=== PATIENT | female | born 1960 | race Hispanic/Latino ===

== ENCOUNTER 2019-03-29 20:58 | Observation (INO) | payer MEDICARE ==
[~2019-03-29] VITALS: Ht 157.5 cm; Wt 83.0 kg
[~2019-03-29 20:58] MED LIST: CARV3.12 PO; CLOP75TA32 PO; FURO20TA4 PO; TORS20TA4 PO
[2019-03-29] MEDS ORDERED: IPRATROPIUM/ALBUTEROL SULFATE 3 ML SOLUTION IH ONE (21:35)
[2019-03-29 21:52] LABS: ABG BASE EXCESS 2.6 mmol/L (-2.0-3.0); ABG HCO3 26.6 mmol/L (21.0-28.0); ABG OXYGEN SATURATION 91.2 % (95.0-99.0); ABG PCO2 39 mmHg (32-45)
[2019-03-29] MEDS ORDERED: LEVOFLOXACIN 500 MG/D5W 100 ML 100 ML ONE (22:00)
[2019-03-29 22:05] LABS: BASOPHILS % (AUTO) 0.4 % (0.0-5.0); HEMATOCRIT 29.3 % (36-48); MEAN CORPUSCULAR HEMOGLOBIN 27.9 pg (27.0-33.0); MEAN CORPUSCULAR HGB CONC 32.3 g/dL (32.0-36.0); MEAN CORPUSCULAR VOLUME 86.3 fL (79-99); MONOCYTES % (AUTO) 4.4 % (3.0-13.0); NEUTROPHILS % (AUTO) 86.2 % (40.0-77.0); PLATELET COUNT (AUTO) 323 K/uL (130-400); RED BLOOD CELL COUNT(AUTO) 3.39 MIL/uL (4.00-5.50); RED CELL DISTRIBUTION WIDTH 16.3 % (11.0-15.5); WHITE BLOOD COUNT (AUTO) 15.5 K/uL (4.8-10.8)
[2019-03-29 22:17] LABS: INR 1.06 (0.85-1.15); PARTIAL THROMBOPLASTIN TIME 29.5 SEC (26.3-35.5); PROTHROMBIN TIME 11.1 SEC (9.6-11.6)
[2019-03-29 22:20] LABS: POTASSIUM 4.2 mmol/L (3.5-5.1)
[2019-03-29 22:23] LABS: B-TYPE NATRIURETIC PEPTIDE 2310 pg/mL (0-100)
[2019-03-29 22:24] LABS: ALBUMIN 2.8 g/dL (3.5-5.0); BILIRUBIN,TOTAL 0.7 mg/dL (0.2-1.0); TOTAL PROTEIN, SERUM 7.1 g/dL (6.0-8.3)
[2019-03-30] MEDS ORDERED: FUROSEMIDE 10 MG/ML 2ML VIAL ONE (00:49)
[2019-03-30] MEDS ORDERED: FUROSEMIDE 10 MG/ML 4ML VIAL ONE (00:50)
[2019-03-30 01:36] LABS: APPEARANCE,URINE Clear (CLEAR); BILIRUBIN,URINE Negative (NEGATIVE); COLOR,URINE Yellow (YELLOW); GLUCOSE, URINE (UA) TRACE mg/dL (NEGATIVE); KETONES,URINE Negative (NEGATIVE); LEUKOCYTE ESTERASE ,URINE Small (NEGATIVE); NITRATE,URINE Negative (NEGATIVE); OCCULT BLOOD,URINE Negative (NEGATIVE); PROTEIN,URINE POS 1+ mg/dL (NEGATIVE); UROBILINOGEN,URINE 0.2 mg/dL (0.2-1.0)
[2019-03-30 01:51] LABS: BACTERIA,URINE None Seen /HPF (None Seen); RBC,URINE None Seen /HPF (0-1); SQUAMOUS EPITHELIAL CELL,UR Few /HPF (0-2); YEAST,URINE BUDDING Few /HPF (None Seen)
--- NOTE | 2019-03-30 03:30 | NUR ---
REPORT RECEIVED FROM HETAL KOCH
--- NOTE | 2019-03-30 03:45 | NUR ---
PT ARRIVED FROM ER. PT IS SOB. ON NASAL CANNULA AT 4LPM. BLIND. REQUIRES REDIRECTION AND ORIENTATION. ABLE TO MOVE IN BED. ABLE TO USE BED TURNER. ON LASIX IV. PT AA03. GIAN. EDEMA NOTED TO UPPER EXTREMITIES. IV PATENT. Addendum: 03/30/19 at 0415 by CIERRA ESPINAL RN RN REDNESS/RASH WITH WHITE DISCHARGE NOTED TO PERINEAL AREA AND AREA BETWEEN BUTTOCKS. BARRIER CREAM APPLIED.
[2019-03-30 04:25] VITALS: BP 136/81
[2019-03-30 06:33] LABS: TROPONIN I 0.73 ng/mL (0.00-0.06)
[2019-03-30 07:07] VITALS: BP 135/75
--- NOTE | 2019-03-30 08:00 | NUR ---
AM ASSESSMENT PT LAYING IN BED, SPEAKING ON CELL PHONE. BLIND. A/O X 3. SOB ON EXERTION. NO DISTRESS NOTED. DENIES CHEST PAIN OR DISCOMFORT. DENIES PALPITATIONS. TELE: SR 80s. DENIES N/V AND/OR DIARRHEA. BEDREST. INSTRUCTED TO CALL FOR ASSISTANCE. CALL CHAD W/IN REACH.
[2019-03-30] MEDS ORDERED: FUROSEMIDE 10 MG/ML 4ML VIAL IVP SCH (09:00)
[2019-03-30 11:10] VITALS: BP 147/74
[2019-03-30] MEDS ORDERED: IPRATROPIUM/ALBUTEROL SULFATE 3 ML SOLUTION IH PRN (12:30)
[2019-03-30] MEDS ORDERED: LEVOFLOXACIN 500 MG/D5W 100 ML 100 ML IV SCH (12:30)
[2019-03-30 14:56] LABS: TROPONIN I 0.8 ng/mL (0.00-0.06)
--- NOTE | 2019-03-30 15:06 | NUR ---
DC PLAN VISITED WITH PATIENT SEVERAL TIMES. PATIENT SLEEPING DID NOT WAKE UP. PER MEDICAL RECORD PATIENT LIVES ALONE, PROVIDER 6 OURS, [facility]. PER DR. LOU PATIENT DID NOT MAKE IT HOME 6 HRS BEFORE RETURNING. NEEDS TO GO TO SNF. NO H AND P OR PT NOTES FOR REFERRAL CM WILL CONTINUE TO MONITOR. Addendum: 03/30/19 at 1508 by ROGERIO JONES RN CM Amended: Links added.
[2019-03-30 15:20] VITALS: BP 142/74
[2019-03-30] MEDS: CARVEDILOL 3.125 MG TABLET PO SCH (19:56)
[2019-03-30 20:27] VITALS: BP 125/69
[2019-03-31] VITALS: BP 141/81
--- NOTE | 2019-03-31 | NUR ---
PT HAS BEEN STABLE. NO SOB. NO DISTRESS NOTED. ABLE TO USE BEDPAN. PT HAS BEEN CLEARED BY PT TO AMBULATE. PT STATES NO CONCERNS AT THIS TIME. VITALS WNL. CONTINUES ON NASAL CANNULA AT 4LPM.
[2019-03-31 04:03] VITALS: BP 138/75
[2019-03-31 04:03] LABS: HEMATOCRIT 27.3 % (36-48); MEAN CORPUSCULAR HEMOGLOBIN 28.6 pg (27.0-33.0); MEAN CORPUSCULAR HGB CONC 33.2 g/dL (32.0-36.0); PLATELET COUNT (AUTO) 264 K/uL (130-400); RED BLOOD CELL COUNT(AUTO) 3.17 MIL/uL (4.00-5.50); RED CELL DISTRIBUTION WIDTH 17.3 % (11.0-15.5); WHITE BLOOD COUNT (AUTO) 9.3 K/uL (4.8-10.8)
[2019-03-31 04:09] LABS: POTASSIUM 3.9 mmol/L (3.5-5.1)
[2019-03-31 04:44] LABS: BAND NEUTROPHILS % (MANUAL) 2 % (0-2); BASOPHILS % (MANUAL) 2 % (0-2); EOSINOPHILS % (MANUAL) 4 % (1-6); LYMPHOCYTES % (MANUAL) 12 % (22-44); MAN.DIFF COMMENT-IMPRESSION MANUAL DIFFERENTIAL; MONOCYTES % (MANUAL) 3 % (2-9); SEGMENTED NEUTROPHILS % 77 % (40-70)
[2019-03-31 04:45] LABS: PLATELET MORPHOLOGY COMMENT ADEQUATE
--- NOTE | 2019-03-31 08:00 | NUR ---
AM ASSESSMENT PT LAYING IN BED, HOB ELEVATED 30 DEGREES, RESTING. BLIND. A/O X 3. SOB ON EXERTION. NO DISTRESS NOTED. O2 NC @ 4L. O2 DEPENDENT. DENIES CHEST PAIN OR DISCOMFORT. DENIES PALPITATIONS. TELE: SR 80s. DENIES N/V AND/OR DIARRHEA. UP W/ASSISTANCE & WALKER. BR W/BRP. INSTRUCTED TO CALL FOR ASSISTANCE. CALL CHAD W/IN REACH.
[2019-03-31 08:12] VITALS: BP 151/85
[2019-03-31] MEDS: CARVEDILOL 3.125 MG TABLET PO SCH (08:42)
[2019-03-31] MEDS ORDERED: LEVOFLOXACIN 500 MG/D5W 100 ML 100 ML IV SCH (09:00)
[2019-03-31] MEDS ORDERED: CLOPIDOGREL BISULFATE 75 MG TAB PO SCH (09:00)
[2019-03-31] MEDS ORDERED: FUROSEMIDE 20 MG TABLET PO SCH ×3 (09:00→21:00)
[2019-03-31 11:10] VITALS: BP 136/70
--- NOTE | 2019-03-31 15:02 | NUR ---
TRANSFER TELEPHONE REPORT GIVEN TO YE KOCH.
--- NOTE | 2019-03-31 15:15 | NUR ---
TRANSFER PT TRANSFERRED TO RM 331 VIA WC BY Rossy HEARN PCP.
[2019-03-31 16:00] VITALS: BP 120/76
--- NOTE | 2019-03-31 16:09 | NUR ---
DC PLAN PATIENT ACCEPTED AT 1530. PATIENT MOVED TO 3RD FLOOR LET 3RD FLOOR NURSE KNOW PATIENT ACCEPTED AT [address]. CALL[address] LOU OFFICE FOR ORDER SAID HE HAD ALREADY LEFT. PAGED HIM TO MY PHONE WELL. NO CALL BACK YET. NEED ORDER AND MED REC. PASRR DONE. PATIENT LOOKS LIKE CAN GO VIA FACILITY VAN BUT IN CASE EMS FORMS FILLED IN CHART. Addendum: 03/31/19 at 1611 by ROGERIO JONES RN CM Amended: Links added.
[2019-03-31] MEDS ORDERED: SIMV20TA6 PO (17:21)
[2019-03-31] MEDS ORDERED: FURO20TA6 PO (17:21)
[2019-03-31] MEDS ORDERED: LEVO500T89 PO (17:21)
--- NOTE | 2019-03-31 18:35 | NUR ---
Discharge report Report given to Giuliana GARCIA of [facility], states company van will come and pick of resident. No questions or concerns verbalized regarding her discharge instructions for the continuation of care. Patient made aware of discharge to facility. Discharge instructions given to patient no questions or concerns voiced. Verbalized understanding of new medications, and new antibiotics.
--- NOTE | 2019-03-31 19:21 | NUR ---
Discharge. Patient left via company van. Patient was stable at time of discharge. no questions or concerns about discharge verbalized.
[2019-03-31] MEDS ORDERED: SIMVASTATIN 20 MG TABLET PO SCH (21:00)
== END 2019-03-31 19:15 ==
LOC: EDH 20:58 → INTOOBSV 03-30 00:24 → EDHIP 03-30 00:24 → 2AH 03-30 03:08 → 3AH 03-31 15:24
PROVIDERS: ADMIT Internal Medicine Nephrology; ATTEND Internal Medicine Nephrology
DX: J18.9 Pneumonia, unspecified organism (principal); I25.10 Atherosclerotic heart disease of native coronary artery without angina pectoris; J44.9 Chronic obstructive pulmonary disease, unspecified; I11.0 Hypertensive heart disease with heart failure; I50.9 Heart failure, unspecified; E78.00 Pure hypercholesterolemia, unspecified; H54.7 Unspecified visual loss; J44.0 Chronic obstructive pulmonary disease with (acute) lower respiratory infection; Z87.01 Personal history of pneumonia (recurrent); Z82.49 Family history of ischemic heart disease and other diseases of the circulatory system; Z79.899 Other long term (current) drug therapy
CPT/HCPCS: 36415 ×3; 36600; 71045; 80048; 80053; 81001; 82550 ×3; 82803; 82948; 83605; 83690; 83874 ×2; 83880; 84484 ×3; 85025 ×2; 85610; 85730; 87040 ×2; 93005; 94640 ×2; 94664; 96365; 96366; 96375; 97039; 97116; 97161; 99291; G0378 ×43; G8978; G8979; G8980; G8981; G8982; G8983; J1940 ×3; J1956 ×3

== ENCOUNTER 2019-05-25 10:00 | Inpatient (IN) | payer MEDICARE ==
[~2019-05-25] VITALS: Ht 153.7 cm; Wt 87.2 kg
[~2019-05-25 10:00] MED LIST changes: -FURO20TA4 PO
[2019-05-25 11:45] VITALS: BP 193/97
[2019-05-25 12:08] LABS: BASOPHILS % (AUTO) 0.8 % (0.0-5.0); EOSINOPHILS % (AUTO) 3.1 % (0.0-8.0); HEMATOCRIT 35.6 % (36-48); MEAN CORPUSCULAR HEMOGLOBIN 27.3 pg (27.0-33.0); MEAN CORPUSCULAR HGB CONC 32.7 g/dL (32.0-36.0); MEAN CORPUSCULAR VOLUME 83.5 fL (79-99); MONOCYTES % (AUTO) 5.7 % (3.0-13.0); NEUTROPHILS % (AUTO) 58.4 % (40.0-77.0); PLATELET COUNT (AUTO) 335 K/uL (130-400); RED BLOOD CELL COUNT(AUTO) 4.26 MIL/uL (4.00-5.50); RED CELL DISTRIBUTION WIDTH 16.5 % (11.0-15.5); WHITE BLOOD COUNT (AUTO) 12.6 K/uL (4.8-10.8)
[2019-05-25 12:18] LABS: INR 0.95 (0.85-1.15); PARTIAL THROMBOPLASTIN TIME 28.7 SEC (26.3-35.5)
[2019-05-25 12:20] LABS: HEMOGLOBIN A1C 7.4 % (4.0-6.0)
[2019-05-25 12:21] LABS: ALBUMIN 3.2 g/dL (3.5-5.0); BILIRUBIN,TOTAL 0.2 mg/dL (0.2-1.0); CREATININE 0.8 mg/dL (0.5-1.5); TOTAL PROTEIN, SERUM 8.5 g/dL (6.0-8.3)
[2019-05-25 12:57] VITALS: BP 146/78
[2019-05-25 13:53] LABS: CHOLESTEROL 266 mg/dL (<200); HDL CHOLESTEROL 43 mg/dL (35-85); LDL DIRECT 201 mg/dL (0-99); TRIGLYCERIDES 132 mg/dL (30-200)
--- NOTE | 2019-05-25 15:32 | NUR ---
LABS ABNORMAL LABS/CHEST XRAY REPORTED TO DR. SOTELO, MESSAGE LEFT WITH PAVEL CRESPO RN , NO FURTHER ORDERS GIVEN
[2019-05-26] VITALS (32 sets, daily range): BP systolic 55–212; BP diastolic 46–208
[2019-05-26] MEDS ORDERED: SODIUM CHLORIDE 0.9% 1000ML 1,000 ML IV ONE (09:49)
--- NOTE | 2019-05-26 10:15 | NUR ---
BLIND pt is blind Addendum: 05/26/19 at 1145 by DINA SR RN RN Amended: Links added.
[2019-05-26] MEDS: CEFUROXIME SODIUM 1.5 GM VIAL IVP SCH ×2 (10:20→11:30)
[2019-05-26] MEDS ORDERED: EPINEPHRINE 1 MG/ML AMPULE ONE (10:33)
[2019-05-26] MEDS ORDERED: MIDAZOLAM HCL 1 MG/ML 2ML VIAL ONE ×2 (10:33→11:15)
[2019-05-26] MEDS ORDERED: FENTANYL CITRATE PF 50 MCG/1 ML 20ML VIAL IJ ONE (10:33)
[2019-05-26] MEDS ORDERED: PROPOFOL 10 MG/ML 20ML VIAL IV ONE (10:33)
[2019-05-26] MEDS ORDERED: AMINOCAPROIC ACID 250 MG/ML 20 ML VIAL IV ONE (10:33)
[2019-05-26] MEDS ORDERED: ROCURONIUM 10MG/1ML SYR 10 MG/ML ML ONE (10:33)
[2019-05-26] MEDS ORDERED: HEPARIN SODIUM 1000UNIT/ML 10ML VIAL ONE (10:33)
[2019-05-26] MEDS ORDERED: NOREPINEPHRINE BITARTRATE 1 MG/1 ML ML IV ONE (10:33)
[2019-05-26] MEDS ORDERED: LIDOCAINE PF 2% 5ML ABBOJECT ONE ×2 (10:33→10:34)
[2019-05-26] MEDS ORDERED: PROTAMINE SULFATE 10 MG/ML 25ML VIAL IV ONE (10:33)
[2019-05-26] MEDS ORDERED: ESMOLOL HCL 10 MG/ML 10 ML VIAL ONE (10:33)
[2019-05-26] MEDS ORDERED: ETOMIDATE 2 MG/ML 10 ML VIAL ONE (10:34)
[2019-05-26] MEDS ORDERED: VASOPRESSIN 20 UNITS/ML 1ML VIAL ONE (10:35)
[2019-05-26] MEDS ORDERED: AMIODARONE HCL 50 MG/ML 3 ML VIAL ONE (10:35)
[2019-05-26] MEDS ORDERED: BACITRACIN 50,000 UNIT VIAL ONE (11:00)
[2019-05-26] MEDS ORDERED: PAPAVERINE HCL 30 MG/ML 2ML VIAL ONE (11:00)
[2019-05-26] MEDS ORDERED: NITROGLYCERIN 50 MG/D5% WATER 1 BOT ONE (11:07)
[2019-05-26] MEDS ORDERED: GLYCOPYRROLATE 1 MG/5 ML SYRINGE ONE (11:12)
[2019-05-26] MEDS ORDERED: INSU10VI3 SQ (11:47)
[2019-05-26 12:28] LABS: ABG BASE EXCESS -0.9 mmol/L (-2.0-3.0); ABG HCO3 23.7 mmol/L (21.0-28.0); ABG OXYGEN SATURATION 99.2 % (95.0-99.0); ABG PCO2 39 mmHg (32-45)
[2019-05-26] MEDS ORDERED: SODIUM CHLORIDE 0.9% 500ML 500 ML IV SCH (14:19)
[2019-05-26] MEDS ORDERED: MAGNESIUM 2GM PREMIX 50ML 50 ML IV PRN (14:30)
[2019-05-26] MEDS ORDERED: NOREPINEPHRINE 4MG/NS 250ML 250 ML IV PRN (14:30)
[2019-05-26] MEDS ORDERED: SODIUM CHLORIDE 0.9% 10 ML VIAL IVP PRN (14:30)
[2019-05-26] MEDS ORDERED: POTASSIUM PHOS 15 mMOL+NS250ML 250 ML IV PRN (14:30)
[2019-05-26] MEDS ORDERED: EPINEPHRINE 8 MG in DEXTROSE 5%-WATER 250 ML IV PRN (14:30)
[2019-05-26] MEDS ORDERED: SODIUM CHLORIDE 0.9% 1000ML 1,000 ML IV SCH (14:30)
[2019-05-26] MEDS ORDERED: ACETAMINOPHEN 325 MG TAB PO PRN ×2 (14:30)
[2019-05-26] MEDS ORDERED: CALCIUM GLUCONATE 1 GM in SODIUM CHLORIDE 0.9% 50 ML IV PRN (14:30)
[2019-05-26] MEDS ORDERED: PROPOFOL 1000 MG/100 ML 100 ML IV PRN (14:30)
[2019-05-26] MEDS ORDERED: GLUCAGON 1MG KIT 1 MG ML IM PRN (14:30)
[2019-05-26] MEDS ORDERED: DEXTROSE 50%-WATER 50 ML DISP.SYRIN IV PRN (14:30)
[2019-05-26] MEDS ORDERED: ONDANSETRON HCL 4 MG/2 ML VIAL IV PRN (14:30)
[2019-05-26] MEDS ORDERED: INSULIN REGULAR, HUMAN 3ML 100 UNIT in SODIUM CHLORIDE 0.9% 99 ML IV SCH ×2 (14:30)
[2019-05-26] MEDS ORDERED: ACETAMINOPHEN 650 MG SUPPOSITORY RC PRN (14:30)
[2019-05-26] MEDS ORDERED: MORPHINE SULFATE 2 MG/ML 1ML SYG IV PRN (14:30)
[2019-05-26] MEDS ORDERED: AMINOCAPROIC ACID 15,000 MG in SODIUM CHLORIDE 0.9% 250 ML IV SCH (14:30)
[2019-05-26] MEDS ORDERED: NITROGLYCERIN 50 MG/D5% WATER 250 BOT IV SCH (14:30)
[2019-05-26] MEDS ORDERED: SODIUM CHLORIDE 0.9% 250 ML IV PRN (14:30)
[2019-05-26] MEDS ORDERED: ALBUMIN (HUMAN) 5% 250 ML IV PRN (14:30)
[2019-05-26] MEDS ORDERED: MORPHINE SULFATE 4 MG/1ML SYG IV PRN (14:30)
[2019-05-26] MEDS ORDERED: POTASSIUM CHLORIDE 20MEQ/100ML 100 ML IV PRN (14:30)
[2019-05-26] MEDS ORDERED: SODIUM BICARB 50MEQ 50ML VIAL ONE (14:43)
[2019-05-26 14:56] LABS: ABG BASE EXCESS 0.8 mmol/L (-2.0-3.0); ABG HCO3 23.8 mmol/L (21.0-28.0); ABG PCO2 32 mmHg (32-45)
--- NOTE | 2019-05-26 15:23 | NUR ---
PT WAS RECEIVED FROM [facility] AND ACCOMPANIED BY OR STAFF AND DR. PARMAR. PT WAS CONNECTED TO VENT PRESCRIBED AND WILL MONITOR V/S AND ASSESSMENT NEEDED.
[2019-05-26 15:44] LABS: ABG BASE EXCESS -4.9 mmol/L (-2.0-3.0); ABG HCO3 19.2 mmol/L (21.0-28.0); ABG OXYGEN SATURATION 98.9 % (95.0-99.0); ABG PCO2 32 mmHg (32-45)
[2019-05-26 15:58] LABS: HEMATOCRIT 26.6 % (36-48); MEAN CORPUSCULAR HEMOGLOBIN 27.4 pg (27.0-33.0); MEAN CORPUSCULAR HGB CONC 32.2 g/dL (32.0-36.0); MEAN CORPUSCULAR VOLUME 85.1 fL (79-99); PLATELET COUNT (AUTO) 269 K/uL (130-400); RED BLOOD CELL COUNT(AUTO) 3.13 MIL/uL (4.00-5.50); RED CELL DISTRIBUTION WIDTH 16.7 % (11.0-15.5)
[2019-05-26 16:03] LABS: WHITE BLOOD COUNT (AUTO) 31.2 K/uL (4.8-10.8)
[2019-05-26 16:10] LABS: INR 1.09 (0.85-1.15); PARTIAL THROMBOPLASTIN TIME 25.6 SEC (26.3-35.5); PROTHROMBIN TIME 11.4 SEC (9.6-11.6)
[2019-05-26 16:15] LABS: CREATININE 0.8 mg/dL (0.5-1.5); MAGNESIUM 1.5 mg/dL (1.80-2.40); PHOSPHORUS 4.1 mg/dL (2.5-4.9); POTASSIUM 3.6 mmol/L (3.5-5.1)
--- NOTE | 2019-05-26 16:15 | NUR ---
PT'S SBP HAS BEEN VERY LABILE AND HAVING TO TURN EPI AND LEVOPHED DRIPS OFF AND BACK ON. HAVE GONE TO TURNING DRIPS OFF TO RESTARTING AT REDUCED DOSE. WILL ATTEMPT TO MAINTAIN SBP BY WORKING WITH MEDS NEEDED.
[2019-05-26] MEDS: SODIUM BICARB 50MEQ 50ML VIAL IV PRN ×2 (16:27→16:28)
[2019-05-26 16:35] LABS: BAND NEUTROPHILS % (MANUAL) 7 % (0-2); EOSINOPHILS % (MANUAL) 1 % (1-6); LYMPHOCYTES % (MANUAL) 12 % (22-44); MAN.DIFF COMMENT-IMPRESSION MANUAL DIFFERENTIAL; MONOCYTES % (MANUAL) 4 % (2-9); REACTIVE LYMPHOCYTES 1 % (0-0); SEGMENTED NEUTROPHILS % 75 % (40-70)
[2019-05-26 16:40] LABS: PLATELET MORPHOLOGY COMMENT LARGE PLTS PRESENT
--- NOTE | 2019-05-26 17:15 | NUR ---
FAMILY MEMBERS HERE TO VISIT WITH PATIENT AND SHE IS NODDING YES OR NO APPROPRIATELY TO THEIR QUESTIONS OR CONCERNS. FAMILY WAS ADVISED OF VISITING HOURS FOR THE AM.
[2019-05-26 18:15] LABS: ABG BASE EXCESS 0.4 mmol/L (-2.0-3.0); ABG HCO3 22.6 mmol/L (21.0-28.0); ABG OXYGEN SATURATION 98.6 % (95.0-99.0); ABG PCO2 28 mmHg (32-45)
--- NOTE | 2019-05-26 18:20 | NUR ---
BRIGHT RED BLOOD FROM N/G TUBE NOTED AND CHECK HCT WITH THE ABG + AND NO DROP NOTED, WILL CONTINUE TO MONITOR.
[2019-05-26] MEDS: CEFAZOLIN SODIUM 1 GM VIAL IV SCH (19:07)
[2019-05-26 20:05] LABS: ABG BASE EXCESS 0.2 mmol/L (-2.0-3.0); ABG HCO3 22.5 mmol/L (21.0-28.0); ABG OXYGEN SATURATION 99.4 % (95.0-99.0); ABG PCO2 31 mmHg (32-45)
[2019-05-26 21:21] LABS: ABG BASE EXCESS 0.6 mmol/L (-2.0-3.0); ABG HCO3 23.8 mmol/L (21.0-28.0); ABG OXYGEN SATURATION 99.3 % (95.0-99.0); ABG PCO2 34 mmHg (32-45)
[2019-05-26] MEDS: FAMOTIDINE/PF 20 MG/2 ML VIAL IV SCH (22:13)
[2019-05-26] MEDS: ATORVASTATIN CALCIUM 20 MG TABLET PO SCH (22:13)
[2019-05-26 23:53] LABS: ABG BASE EXCESS 0.1 mmol/L (-2.0-3.0); ABG HCO3 25.1 mmol/L (21.0-28.0); ABG OXYGEN SATURATION 98.4 % (95.0-99.0); ABG PCO2 42 mmHg (32-45)
[2019-05-27] VITALS (34 sets, daily range): BP systolic 75–152; BP diastolic 40–69
--- NOTE | 2019-05-27 00:36 | NUR ---
extubation Patient ABG within normal limits for most of the shift, but she was unable to follow directions during the weaning tests. She finally was able to pass the NIP test and was extubated at 0030 to 10 liters- 40% Fio2 and tolerated well. The bleeding from the OG tube stopped at 2100. Patient continues to be on 0.5 mcg/min of Levofed.
[2019-05-27 02:31] LABS: ABG BASE EXCESS -1.7 mmol/L (-2.0-3.0); ABG HCO3 22.7 mmol/L (21.0-28.0); ABG PCO2 38 mmHg (32-45)
[2019-05-27] MEDS: CEFAZOLIN SODIUM 1 GM VIAL IV SCH ×2 (03:18→11:04)
[2019-05-27] MEDS: TRAMADOL HCL 50 MG TABLET PO PRN ×3 (03:18→14:47)
[2019-05-27 04:40] LABS: HEMATOCRIT 27.9 % (36-48); MEAN CORPUSCULAR HGB CONC 32.6 g/dL (32.0-36.0); PLATELET COUNT (AUTO) 242 K/uL (130-400); RED BLOOD CELL COUNT(AUTO) 3.37 MIL/uL (4.00-5.50); RED CELL DISTRIBUTION WIDTH 16.3 % (11.0-15.5)
[2019-05-27 04:57] LABS: POTASSIUM 4.5 mmol/L (3.5-5.1)
[2019-05-27 05:02] LABS: INR 0.97 (0.85-1.15); PARTIAL THROMBOPLASTIN TIME 25.6 SEC (26.3-35.5); PROTHROMBIN TIME 10.2 SEC (9.6-11.6)
[2019-05-27 05:13] LABS: MAGNESIUM 2.2 mg/dL (1.80-2.40); PHOSPHORUS 4.7 mg/dL (2.5-4.9)
[2019-05-27] MEDS: ASPIRIN 325MG EC TAB 325 MG TABLET.DR PO SCH (08:16)
[2019-05-27] MEDS: FAMOTIDINE/PF 20 MG/2 ML VIAL IV SCH ×2 (08:16→21:51)
[2019-05-27] MEDS: FUROSEMIDE 10 MG/ML 2ML VIAL IV SCH ×2 (08:16→21:51)
--- NOTE | 2019-05-27 09:00 | NUR ---
PT HAS BEEN ASKING FOR FAMILY AND SISTER VAUGHN WAS CALLED BY NURSING STAFF DUE TO PATIENT'S ASSISTANCE. SISTER SAID THAT SHE WOULD BE LEAVING HER HOME SOON AND THAT IT TAKES HER AN HOUR TO GET TO HOSPITAL AFTER SHE LEFT HER HOME. PATIENT WAS ADVISED.
--- NOTE | 2019-05-27 09:50 | NUR ---
PT WAS ABLE TO USE NURSING STAFF PHONE TO CALL SISTER VAUGHN AND PT GOT UPSET WITH SISTER AND ASKED TOLD HER "DON'T COME" AND PUSHED PHONE AWAY FROM HER.
--- NOTE | 2019-05-27 11:20 | NUR ---
PT'S SISTER HERE AND ADVISING PATIENT TO BE MORE COOPERATIVE AND PT IS ASKING SISTER FOR WATER AND BEING COOPERATIVE.
--- NOTE | 2019-05-27 13:40 | NUR ---
SISTER STAYED IN ORDER FOR PHYSICAL THERAPIST JERRY COULD EVALUATE PATIENT AND PT DID ADVISED PER THERAPIST.
--- NOTE | 2019-05-27 15:10 | NUR ---
DC PLAN PATIENT IN CVR RESTING THIS MORNING. THIS AFTERNOON PT WORKING WITH PATIENT. CARL WILL CONTINUE TO FOLLOW. Addendum: 05/27/19 at 1510 by ROGERIO JONES RN CM Amended: Links added.
--- NOTE | 2019-05-27 16:15 | NUR ---
PT WAS TRANSFERRED TO ROOM 218 SISTER WAS ADVISED.
--- NOTE | 2019-05-27 20:00 | NUR ---
ASSESSMENT: PT AAOX3, COOPERATIVE, FOLLOWING COMMANDS AND RESPONDS APPROPRIATELY. ASSESSMENT COMPLETED, SEE FLOW SHEET. WHITE BOARD UP-DATED. BEDSIDE MONITOR PARAMETERS REVIEWED AND SET. CALLBELL REVIEWED AND WITHIN REACH.
[2019-05-27] MEDS: ATORVASTATIN CALCIUM 20 MG TABLET PO SCH (21:51)
[2019-05-28] VITALS (23 sets, daily range): BP systolic 114–172; BP diastolic 50–106
[2019-05-28] MEDS: TRAMADOL HCL 50 MG TABLET PO PRN ×2 (00:21→09:09)
[2019-05-28 04:22] LABS: HEMATOCRIT 24.3 % (36-48); MEAN CORPUSCULAR HEMOGLOBIN 27.1 pg (27.0-33.0); MEAN CORPUSCULAR HGB CONC 31.9 g/dL (32.0-36.0); MEAN CORPUSCULAR VOLUME 85.1 fL (79-99); PLATELET COUNT (AUTO) 205 K/uL (130-400); RED BLOOD CELL COUNT(AUTO) 2.85 MIL/uL (4.00-5.50); RED CELL DISTRIBUTION WIDTH 16.7 % (11.0-15.5); WHITE BLOOD COUNT (AUTO) 14.1 K/uL (4.8-10.8)
[2019-05-28 04:46] LABS: CREATININE 1.3 mg/dL (0.5-1.5)
--- NOTE | 2019-05-28 06:56 | NUR ---
BEDSIDE REPORT BEDSIDE REPORT GIVEN TO NINOSKA KOCH. CARE ENDORSED.
[2019-05-28] MEDS: FUROSEMIDE 20 MG TABLET PO SCH ×2 (09:08→16:35)
[2019-05-28] MEDS: ASPIRIN 325MG EC TAB 325 MG TABLET.DR PO SCH (09:09)
[2019-05-28] MEDS: FAMOTIDINE/PF 20 MG/2 ML VIAL IV SCH ×2 (09:09→20:56)
[2019-05-28] MEDS: CARVEDILOL 3.125 MG TABLET PO SCH ×2 (09:09→20:55)
[2019-05-28] MEDS ORDERED: GLUCAGON 1MG KIT 1 MG ML IM PRN (13:30)
[2019-05-28] MEDS ORDERED: DEXTROSE 50%-WATER 50 ML DISP.SYRIN IV PRN (13:30)
[2019-05-28] MEDS: INSULIN HUMULIN R 100 UNIT/ML 3ML SQ SCH ×2 (16:30→21:03)
--- NOTE | 2019-05-28 17:25 | NUR ---
DC PLAN VISITED WITH PATIENT. PATIENT LIVES ALONE. SEMI INDEPENDENT ABLE TO PERFORM MOST ADL'S. PATIENT HAS A PROVIDER FOR 29 HRS. NO DME. SAYS HAS BEEN TO [facility] BEFORE AND WOULD LIKE TO GO THERE FOR THERAPY GAVE VERBAL PETR SINCE PATIENT IS BLIND. LET NURSE KNOW THAT NEED ORDER FOR SNF. Addendum: 05/28/19 at 1727 by ROGERIO JONES RN CM Amended: Links added.
[2019-05-28] MEDS: ATORVASTATIN CALCIUM 20 MG TABLET PO SCH (20:54)
[2019-05-28] MEDS: DiphenhydrAMINE HCL 50 MG/ML VIAL IV PRN (20:56)
[2019-05-29] VITALS (13 sets, daily range): BP systolic 96–180; BP diastolic 46–139
[2019-05-29 03:58] LABS: BASOPHILS % (AUTO) 0.6 % (0.0-5.0); EOSINOPHILS % (AUTO) 1.2 % (0.0-8.0); HEMATOCRIT 22.7 % (36-48); LYMPHOCYTES % (AUTO) 16.6 % (21.0-51.0); MEAN CORPUSCULAR HEMOGLOBIN 27.8 pg (27.0-33.0); MEAN CORPUSCULAR HGB CONC 32.8 g/dL (32.0-36.0); MEAN CORPUSCULAR VOLUME 84.7 fL (79-99); MONOCYTES % (AUTO) 9.3 % (3.0-13.0); NEUTROPHILS % (AUTO) 72.3 % (40.0-77.0); PLATELET COUNT (AUTO) 221 K/uL (130-400); RED BLOOD CELL COUNT(AUTO) 2.68 MIL/uL (4.00-5.50); RED CELL DISTRIBUTION WIDTH 16.4 % (11.0-15.5); WHITE BLOOD COUNT (AUTO) 13.2 K/uL (4.8-10.8)
[2019-05-29 04:14] LABS: CREATININE 1.2 mg/dL (0.5-1.5); MAGNESIUM 2.1 mg/dL (1.80-2.40); PHOSPHORUS 3.4 mg/dL (2.5-4.9); POTASSIUM 4.1 mmol/L (3.5-5.1)
[2019-05-29] MEDS: INSULIN HUMULIN R 100 UNIT/ML 3ML SQ SCH ×4 (05:55→21:24)
[2019-05-29] MEDS: TRAMADOL HCL 50 MG TABLET PO PRN (06:31)
[2019-05-29] MEDS: CARVEDILOL 3.125 MG TABLET PO SCH ×2 (07:24→20:27)
[2019-05-29] MEDS: FAMOTIDINE/PF 20 MG/2 ML VIAL IV SCH ×2 (07:24→20:26)
[2019-05-29] MEDS: ASPIRIN 325MG EC TAB 325 MG TABLET.DR PO SCH (07:24)
[2019-05-29] MEDS: FUROSEMIDE 20 MG TABLET PO SCH ×2 (07:25→16:35)
[2019-05-29] MEDS: ENOXAPARIN SODIUM 30 MG/0.3 ML SQ SCH (07:25)
--- NOTE | 2019-05-29 10:15 | NUR ---
SH[facility] Dr. Rubio in to see pt, update given. New orders received and will carry out.
[2019-05-29] MEDS ORDERED: FUROSEMIDE 10 MG/ML 2ML VIAL IV SCH (10:51)
[2019-05-29] MEDS: CLOPIDOGREL BISULFATE 75 MG TAB PO SCH (10:57)
--- NOTE | 2019-05-29 11:35 | NUR ---
CALL Call received from Dr. Henry, update given, new orders received and will carry out.
--- NOTE | 2019-05-29 13:00 | NUR ---
DC LINES Arterial line to left radial discontinued, dressing applied. Chest tubes x2 to mediastinal discontinued as well. Cordis to right internal jugular discontinued, manual pressure held x 15 minutes, no oozing noted from the site, dressing applied. Gaspar catheter removed, due to void at 1900. Pt tolerated well. Call sinclair within reach.
--- NOTE | 2019-05-29 15:40 | NUR ---
TRANSFER Pt transferred to room 203. In no distress. All belongings given to pt and sister at bedside. Telepack applied prior to transfer. Report given to ZEE Salas.
--- NOTE | 2019-05-29 15:45 | NUR ---
ARRIVAL TO ROOM 203 PT IS AAOX3 DENIES CP DENIES SOB DENIES NV NO COMPLAINTS. NO VISIBLE SIGNS OF DISTRESS NOTED. SITTING UP IN RECLINER FAMILY IS AT BEDSIDE. ENCOURAGED USE OF IS 10XS Q1HR WHILE AWAKE ENCOURAGED COUGH AND DEEP BREATHING WITH HEART PILLOW SPLINTING, CALL LIGHT WITHIN REACH.
[2019-05-29] MEDS: DiphenhydrAMINE HCL 50 MG/ML VIAL IV PRN (20:26)
[2019-05-29] MEDS: ATORVASTATIN CALCIUM 20 MG TABLET PO SCH (20:27)
[2019-05-30 00:04] VITALS: BP 121/71
[2019-05-30] MEDS: TRAMADOL HCL 50 MG TABLET PO PRN ×2 (04:51→12:54)
[2019-05-30 04:56] LABS: HEMATOCRIT 23.4 % (36-48); MEAN CORPUSCULAR HEMOGLOBIN 27.3 pg (27.0-33.0); MEAN CORPUSCULAR HGB CONC 32.1 g/dL (32.0-36.0); NUCLEATED RED BLOOD CELLS 0.1 % (0.0-0.19); PLATELET COUNT (AUTO) 233 K/uL (130-400); RED BLOOD CELL COUNT(AUTO) 2.75 MIL/uL (4.00-5.50); RED CELL DISTRIBUTION WIDTH 16.5 % (11.0-15.5)
[2019-05-30 05:08] LABS: CREATININE 1.2 mg/dL (0.5-1.5); POTASSIUM 4.1 mmol/L (3.5-5.1)
[2019-05-30 05:10] VITALS: BP 132/72
[2019-05-30] MEDS: INSULIN HUMULIN R 100 UNIT/ML 3ML SQ SCH ×4 (07:04→21:22)
[2019-05-30] MEDS: FUROSEMIDE 20 MG TABLET PO SCH (07:29)
[2019-05-30] MEDS: CARVEDILOL 3.125 MG TABLET PO SCH ×2 (07:29→21:06)
[2019-05-30] MEDS: CLOPIDOGREL BISULFATE 75 MG TAB PO SCH (07:29)
[2019-05-30] MEDS: FAMOTIDINE/PF 20 MG/2 ML VIAL IV SCH ×2 (07:30→21:08)
[2019-05-30] MEDS: ASPIRIN 325MG EC TAB 325 MG TABLET.DR PO SCH (07:30)
[2019-05-30] MEDS: ENOXAPARIN SODIUM 30 MG/0.3 ML SQ SCH (07:30)
[2019-05-30 07:35] VITALS: BP 147/76
--- NOTE | 2019-05-30 08:00 | NUR ---
ASSESSMENT PT IS AAOX3 DENIES CP DENIES SOB DENIES NV NO COMPLAINTS. NO VISIBLE SIGNS OF DISTRESS NOTED. SITTING UP IN RECLINER. AM MEDS GIVEN, CRUSHED REQUESTED BY PATIENT. ENCOURAGED USE OF IS 10XS Q1HR WHILE AWAKE ENCOURAGED COUGH AND DEEP BREATHING WITH HEART PILLOW SPLINTING, CALL LIGHT WITHIN REACH. DOOR AJAR BLINDS OPEN.
--- NOTE | 2019-05-30 09:51 | NUR ---
STATUS Repositioned for comfort. Call light within reach.
[2019-05-30 10:52] VITALS: BP 132/64
--- NOTE | 2019-05-30 13:30 | NUR ---
UP TO SHOWER FAMILY ASSISTED, TOLERATED WELL, BACK TO RECLINER. TOLERATED WELL CALL LIGHT WITHIN REACH.
--- NOTE | 2019-05-30 15:02 | NUR ---
DR Charisma LOU ROUNDED SAW PATIENT, ORDERED TO STOP LASIX
[2019-05-30 15:06] VITALS: BP 155/86
[2019-05-30] MEDS ORDERED: PHARMACY COMMUNICATION MISC SCH (15:15)
--- NOTE | 2019-05-30 19:15 | NUR ---
Pt. instructed to use call light for assistance and demonstrated understanding. to bedside.
[2019-05-30 20:37] VITALS: BP 139/76
[2019-05-30] MEDS: ATORVASTATIN CALCIUM 20 MG TABLET PO SCH (21:07)
[2019-05-30] MEDS: DiphenhydrAMINE HCL 50 MG/ML VIAL IV PRN (21:20)
[2019-05-31 00:39] VITALS: BP 158/71
[2019-05-31 03:54] VITALS: BP 146/72
[2019-05-31] MEDS: INSULIN HUMULIN R 100 UNIT/ML 3ML SQ SCH ×3 (06:31→16:15)
--- NOTE | 2019-05-31 07:35 | NUR ---
Bedside report given to incoming NOD using SbAR all questions answered.Informed incoming NOD regarding pt and family 's request regarding carotid endarterectomy procedure to be asked to the primary because pt had a schedule in [facility] as per pt's sister and they would prefer to have it done here.Pt. remained stable and resting well throughout the night.
[2019-05-31] MEDS ORDERED: ASPIRIN 81 MG EC TAB ONE (08:11)
[2019-05-31 08:20] VITALS: BP 173/77
[2019-05-31] MEDS: ASPIRIN 325MG EC TAB 325 MG TABLET.DR PO SCH (08:38)
[2019-05-31] MEDS: CLOPIDOGREL BISULFATE 75 MG TAB PO SCH (08:39)
[2019-05-31] MEDS: FAMOTIDINE/PF 20 MG/2 ML VIAL IV SCH (08:42)
[2019-05-31] MEDS: ENOXAPARIN SODIUM 30 MG/0.3 ML SQ SCH (08:43)
[2019-05-31] MEDS: TRAMADOL HCL 50 MG TABLET PO PRN (08:45)
[2019-05-31] MEDS ORDERED: CARVEDILOL 6.25 MG TABLET PO SCH (09:00)
[2019-05-31 11:57] VITALS: BP 163/80
--- NOTE | 2019-05-31 13:04 | NUR ---
DC PLAN PATIENT BLIND GAVE VERBAL PETR. INFO FAXED AND EMAILED TO [facility] CALLED SPOKE TO REP ON WAY. DID NOT GET MESSAGE THIS MORNING. HAWK DONE AND SENT. WILL GO VIA FACILITY VAN. Addendum: 05/31/19 at 1305 by ROGERIO JONES RN CM Amended: Links added.
[2019-05-31] MEDS ORDERED: TRAMADOL HCL 50 MG TABLET PO SCH (13:15)
--- NOTE | 2019-05-31 13:58 | NUR ---
DR. SIMMS IN ROOM SPEAKING WITH PT. RE:DISCHARGE DISPOSITION. FEMALE VISITORS X2 AT BEDSIDE.
--- NOTE | 2019-05-31 14:10 | NUR ---
AMBULATING IN HALLWAY WITH P.T. STEADY GAIT NOTED.
--- NOTE | 2019-05-31 15:00 | NUR ---
LATE ENTRY: OFFERED PT. LAXATIVE DUE TO "NO BM IN SEVERAL DAYS." PT. DECLINED, STATES SHE DOES NOT WANT TO GO AT THE "WRONG TIME." STATES WILL ASK FOR LAXATIVE "TOMORROW" IF SHE NEEDS IT.
[2019-05-31] MEDS ORDERED: ASPI-891 PO (15:25)
[2019-05-31] MEDS ORDERED: CARV6.2579 PO (15:25)
[2019-05-31] MEDS ORDERED: CLOP75TA14 PO (15:25)
[2019-05-31] MEDS ORDERED: TRAM50TA4 PO (15:25)
[2019-05-31] MEDS ORDERED: ATOR20TA65 PO (15:25)
[2019-05-31 15:39] VITALS: BP 148/86
--- NOTE | 2019-05-31 16:00 | NUR ---
DR. FREITAS IN ROOM SPEAKING WITH PT.
--- NOTE | 2019-05-31 17:13 | NUR ---
JAMILA GAN CALLED 1411 SAID PATIENT ACCEPTED. LET NURSE KNOW PENDING MD TO ROUND FOR ORDER. PATIENT WILL GO VIA FACILITY VAN. ARECHIGA DONE AND SENT. Addendum: 05/31/19 at 1714 by ROGERIO JONES RN CM Amended: Links added.
--- NOTE | 2019-05-31 18:01 | NUR ---
REPORT TO JOURDAN OLSON LVN AT [facility].
--- NOTE | 2019-05-31 18:20 | NUR ---
HL REMOVED, CATHETER INTACT. CT SUTURES REMOVES, STERI-STRIPS APPLIED. DISCHARGE INSTRUCTIONS GIVEN TO PT., VERBALIZED UNDERSTANDING. ASKED PT. IF SISTER TO BE CALLED BY THIS NURSE RE:DISCHARGE INSTRUCTIONS, PT. DECLINED. STATES,"NO, DON'T CALL HER, SHE ALREADY KNOWS."
== END 2019-05-31 19:00 | DRG 235 ==
LOC: EDSTATUS 10:00 → DAHIP 05-26 09:16 → 2CV 05-26 14:32 → 2CH 05-27 16:13 → 2AH 05-29 15:48
PROVIDERS: ADMIT Thoracic Surgery (Cardiothoracic Vascular Surgery); ATTEND Thoracic Surgery (Cardiothoracic Vascular Surgery)
PROC: 02100Z9 Bypass Coronary Artery, One Artery from Left Internal Mammary, Open Approach (ICD-10-PCS; principal; 2019-05-26 11:00)
PROC: 021109W Bypass Coronary Artery, Two Arteries from Aorta with Autologous Venous Tissue, Open Approach (ICD-10-PCS; 2019-05-26 11:00)
PROC: 06BQ4ZZ Excision of Left Saphenous Vein, Percutaneous Endoscopic Approach (ICD-10-PCS; 2019-05-26 11:00)
DX: I25.10 Atherosclerotic heart disease of native coronary artery without angina pectoris (principal); I50.43 Acute on chronic combined systolic (congestive) and diastolic (congestive) heart failure; I13.0 Hypertensive heart and chronic kidney disease with heart failure and stage 1 through stage 4 chronic kidney disease, or unspecified chronic kidney disease; I25.5 Ischemic cardiomyopathy; D64.9 Anemia, unspecified; D72.829 Elevated white blood cell count, unspecified; E11.21 Type 2 diabetes mellitus with diabetic nephropathy; E11.22 Type 2 diabetes mellitus with diabetic chronic kidney disease; E11.51 Type 2 diabetes mellitus with diabetic peripheral angiopathy without gangrene; E66.9 Obesity, unspecified; E78.2 Mixed hyperlipidemia; H54.8 Legal blindness, as defined in USA; N18.3 Chronic kidney disease, stage 3 (moderate); Z68.36 Body mass index [BMI] 36.0-36.9, adult; Z88.8 Allergy status to other drugs, medicaments and biological substances; Z79.02 Long term (current) use of antithrombotics/antiplatelets; Z79.82 Long term (current) use of aspirin; Z79.899 Other long term (current) drug therapy; Z87.01 Personal history of pneumonia (recurrent)
CPT/HCPCS: 36415; 71045; 71046; 80048; 80053; 80061; 82330; 82435; 82803; 82947; 82948; 83036; 83605; 83735; 84100; 84132; 84295; 85018; 85025; 85027; 85060; 85347; 85610; 85730; 86850; 86900; 86901; 86922; 93005; 94002; 94010; 94150; 97039; A7048; G0378; J0171; J0282; J0690; J0697; J1200; J1644; J1650; J1815; J1940; J2001; J2250; J2270; J2405; J2440; J2704; J2720; J3010; J3475; J3480; J3490; J7030; J7040; P9045

== ENCOUNTER 2020-03-02 14:43 | Observation (INO) | payer MEDICARE ==
[~2020-03-02 14:43] MED LIST changes: +ASPI-891 PO; +ATOR20TA65 PO; -CARV3.12 PO; +CARV6.2579 PO; +CLOP75TA14 PO; -CLOP75TA32 PO; +INSU10VI3 SQ; -TORS20TA4 PO; +TRAM50TA4 PO
[2020-03-02 18:40] LABS: BASOPHILS % (AUTO) 0.4 % (0.0-5.0); EOSINOPHILS % (AUTO) 2.8 % (0.0-8.0); HEMATOCRIT 36.3 % (36-48); LYMPHOCYTES % (AUTO) 12.9 % (21.0-51.0); MEAN CORPUSCULAR HEMOGLOBIN 25.2 pg (27.0-33.0); MEAN CORPUSCULAR HGB CONC 30.6 g/dL (32.0-36.0); MEAN CORPUSCULAR VOLUME 82.3 fL (79-99); MONOCYTES % (AUTO) 5.3 % (3.0-13.0); NEUTROPHILS % (AUTO) 78.3 % (40.0-77.0); PLATELET COUNT (AUTO) 381 K/uL (130-400); RED BLOOD CELL COUNT(AUTO) 4.41 MIL/uL (4.00-5.50); RED CELL DISTRIBUTION WIDTH 17.5 % (11.0-15.5); WHITE BLOOD COUNT (AUTO) 12.9 K/uL (4.8-10.8)
[2020-03-02] MEDS ORDERED: HYDRALAZINE HCL 20 MG/ML VIAL ONE (19:00)
[2020-03-02 19:01] LABS: CARBON DIOXIDE 25 mmol/L (21-32); CHLORIDE 103 mmol/L (101-111); CREATININE 1.2 mg/dL (0.5-1.5); GLOMERULAR FILTR. RATE CALC 49 mL/min (>60); GLUCOSE,RANDOM 166 mg/dL (70-105); POTASSIUM 4.5 mmol/L (3.5-5.1); SODIUM SERUM 139 mmol/L (136-145); UREA NITROGEN, BLOOD 31 mg/dL (7-18)
[2020-03-02] MEDS ORDERED: FUROSEMIDE 10 MG/ML 4ML VIAL ONE (19:01)
[2020-03-02 19:05] LABS: INR 0.9 (0.85-1.15); PARTIAL THROMBOPLASTIN TIME 25.2 SEC (26.3-35.5); PROTHROMBIN TIME 9.8 SEC (9.6-11.6)
[2020-03-02 19:13] LABS: ALANINE AMINOTRANSFERASE 17 U/L (12-78); ALBUMIN 2.9 g/dL (3.5-5.0); ASPARTATE AMINOTRANSFERASE 7 U/L (10-37); B-TYPE NATRIURETIC PEPTIDE 1430 pg/mL (0-100); BILIRUBIN,TOTAL 0.3 mg/dL (0.2-1.0); CREATINE KINASE, TOTAL 42 U/L (21-232); MYOGLOBIN 43 ng/mL (10-92); TOTAL PROTEIN, SERUM 7.8 g/dL (6.0-8.3); TROPONIN I < 0.04 ng/mL (0.00-0.06)
[2020-03-02 20:15] LABS: APPEARANCE,URINE Clear (CLEAR); BILIRUBIN,URINE Negative (NEGATIVE); COLOR,URINE Yellow (YELLOW); GLUCOSE, URINE (UA) Negative (NEGATIVE); KETONES,URINE Negative (NEGATIVE); LEUKOCYTE ESTERASE ,URINE Negative (NEGATIVE); NITRATE,URINE Negative (NEGATIVE); OCCULT BLOOD,URINE Negative (NEGATIVE); PROTEIN,URINE POS 2+ mg/dL (NEGATIVE)
[2020-03-02 20:32] LABS: BACTERIA,URINE Rare /HPF (None Seen); MUCUS,URINE Few LPF (None Seen); SQUAMOUS EPITHELIAL CELL,UR Few /HPF (0-2)
[2020-03-02] MEDS ORDERED: DEXTROSE 50%-WATER 50 ML DISP.SYRIN IV PRN (21:00)
[2020-03-02] MEDS ORDERED: GLUCAGON 1MG KIT 1 MG ML IM PRN (21:00)
[2020-03-02] MEDS: INSULIN R PO SS1 SQ SCH (21:00)
[2020-03-02] MEDS: ENOXAPARIN SODIUM 40 MG/0.4 ML SYRINGE SQ SCH (21:00)
[2020-03-03] MEDS: FUROSEMIDE 10 MG/ML 4ML VIAL IV SCH ×4 (02:00→22:20)
[2020-03-03] MEDS ORDERED: FUROSEMIDE 10 MG/ML 4ML VIAL ONE ×4 (03:35→22:08)
[2020-03-03 04:05] LABS: BASOPHILS % (AUTO) 0.4 % (0.0-5.0); EOSINOPHILS % (AUTO) 2.3 % (0.0-8.0); HEMATOCRIT 36.5 % (36-48); LYMPHOCYTES % (AUTO) 12.5 % (21.0-51.0); MEAN CORPUSCULAR HEMOGLOBIN 25.2 pg (27.0-33.0); MEAN CORPUSCULAR VOLUME 81.3 fL (79-99); MONOCYTES % (AUTO) 5.9 % (3.0-13.0); NEUTROPHILS % (AUTO) 78.5 % (40.0-77.0); PLATELET COUNT (AUTO) 356 K/uL (130-400); RED BLOOD CELL COUNT(AUTO) 4.49 MIL/uL (4.00-5.50); RED CELL DISTRIBUTION WIDTH 17.4 % (11.0-15.5); WHITE BLOOD COUNT (AUTO) 11.4 K/uL (4.8-10.8)
[2020-03-03 04:13] LABS: CREATININE 0.9 mg/dL (0.5-1.5); POTASSIUM 4.1 mmol/L (3.5-5.1)
[2020-03-03 04:42] LABS: B-TYPE NATRIURETIC PEPTIDE 1230 pg/mL (0-100)
[2020-03-03] MEDS: INSULIN R PO SS1 SQ SCH ×4 (07:30→21:00)
[2020-03-03] MEDS ORDERED: INSULIN HUMULIN R 100 UNIT/ML 3ML ONE (13:55)
[2020-03-03] MEDS ORDERED: LIDOCAINE HCL-MPF 1% 2ML VIAL IV PRN (14:00)
[2020-03-03] MEDS ORDERED: POTASSIUM CHLORIDE 10% ELIXIR 20 MEQ/15 ML UDCUP PO PRN (14:00)
[2020-03-03] MEDS ORDERED: DEXTROSE 50%-WATER 50 ML DISP.SYRIN IV PRN (14:00)
[2020-03-03] MEDS ORDERED: POTASSIUM CHLORIDE 20 MEQ ERTAB PO PRN (14:00)
[2020-03-03] MEDS ORDERED: GLUCAGON 1MG KIT 1 MG ML IM PRN (14:00)
[2020-03-03] MEDS ORDERED: POTASSIUM CHLORIDE 20MEQ/100ML 100 ML IV PRN (14:00)
[2020-03-03] MEDS ORDERED: TRAMADOL HCL 50 MG TABLET PO PRN (14:15)
[2020-03-03] MEDS ORDERED: TRAMADOL HCL 50 MG TABLET ONE (15:48)
[2020-03-03] MEDS: INSULIN HUMULIN R 100 UNIT/ML 3ML SQ SCH ×2 (16:30→21:00)
--- NOTE | 2020-03-03 18:14 | NUR ---
SPOKE TO FAMILY ON PHONE - VAUGHN STATES PATIENT LIVES ALONE, HAS A PROVIDER 4 HRS DAILY X 6 DAYS PER WEEK . IS MOBILE IN HER APT, HAS BEEN BLIND SINCE INFANCY- HAS SIBLING WHO DO NOT WANT TO BE EXPOSED TO COVID IF AT ALL POSISLBE- [place]- WAS EXPOSED TO SOMEONE WHO IS COVID + DURING THAT VISIT, PATIENT FOUND OUT YESTERDAY AND WENT TO 'S OFFICE AND WAS BROUGHT BY EMS FOR EVALUATION SHAMIR NUMBER IS [phone] OTHER SISTER MICHAEL YOUNG [phone] IF POSITIVE, WILL HAVE TO DECIDE WHAT TO DO ABOUT TRANSPORT CM TO FOLLOW. CM ADVISED CAPPER MACHINE OPERATOR THIS AM THAT PATIENT WOULD BE BETTER OUT OF THE ER AND HOME TO FOLLOW COVID TESTS Addendum: 03/03/20 at 1827 by MIKAYLA DELGADILLO RN CM Amended: Links added.
--- NOTE | 2020-03-03 20:00 | NUR ---
PT REFUSING VITALS, REFUSING LOVENOX REFUISNG SUGAR CHECKS CHarge nurse aware
[2020-03-03] MEDS ORDERED: ATORVASTATIN CALCIUM 20 MG TABLET PO SCH (21:00)
[2020-03-03] MEDS: CARVEDILOL 6.25 MG TABLET PO SCH ×2 (21:00→22:20)
[2020-03-03] MEDS: ENOXAPARIN SODIUM 40 MG/0.4 ML SYRINGE SQ SCH ×2 (21:00→22:45)
[2020-03-03] MEDS ORDERED: ENOXAPARIN SODIUM 40 MG/0.4 ML SYRINGE SQ ONE (22:08)
[2020-03-03] MEDS ORDERED: CARVEDILOL 6.25 MG TABLET PO ONE (22:09)
[2020-03-04] VITALS: BP 111/58
[2020-03-04] MEDS ORDERED: TRAMADOL HCL 50 MG TABLET ONE ×2 (03:25→05:47)
[2020-03-04 04:00] VITALS: BP 174/88
[2020-03-04] MEDS: INSULIN HUMULIN R 100 UNIT/ML 3ML SQ SCH (05:42)
[2020-03-04] MEDS: INSULIN R PO SS1 SQ SCH (05:43)
[2020-03-04] MEDS ORDERED: CLOPIDOGREL BISULFATE 75 MG TAB PO SCH (09:00)
[2020-03-04] MEDS ORDERED: ASPIRIN 325MG EC TAB 325 MG TABLET.DR PO SCH (09:00)
--- NOTE | 2020-03-04 19:14 | NUR ---
CM NOTE CM discussed status clarification with . Pt is OBS status and left AMA. Addendum: 03/04/20 at 4 by ODALIS VALENZUELA CM Amended: Links added.
== END 2020-03-04 09:35 | disposition left against medical advice (07) ==
LOC: EDH 14:43 → EDHIP 20:00
PROVIDERS: ADMIT Internal Medicine; ATTEND Internal Medicine
DX: I11.0 Hypertensive heart disease with heart failure (principal); Z20.828 Contact with and (suspected) exposure to other viral communicable diseases; I50.9 Heart failure, unspecified; E11.9 Type 2 diabetes mellitus without complications; R60.0 Localized edema; E78.5 Hyperlipidemia, unspecified; I25.810 Atherosclerosis of coronary artery bypass graft(s) without angina pectoris; H54.8 Legal blindness, as defined in USA; Z88.8 Allergy status to other drugs, medicaments and biological substances
CPT/HCPCS: 36415 ×2; 71045 ×2; 80048; 80053; 81001; 82550; 82948 ×3; 83605; 83874; 83880 ×2; 84145; 84484; 85025 ×2; 85378; 85610; 85730; 86900; 86901; 87040 ×2; 87077 ×2; 87088; 87186 ×2; 93005; 96374; 99291; G0378 ×5; J0360; J1650; J1815; J1940 ×5; U0003

== ENCOUNTER 2022-12-18 10:15 | Emergency (ER) | payer MEDICARE ==
[~2022-12-18] VITALS: Ht 157.5 cm; Wt 104.3 kg
[~2022-12-18 10:15] MED LIST changes: +CLOP-31 PO; -CLOP75TA14 PO
[2022-12-18 10:22] VITALS: BP 148/72
[2022-12-18 11:06] LABS: CREATININE 1.2 mg/dL (0.5-1.5); POTASSIUM 4.9 mmol/L (3.5-5.1)
[2022-12-18 11:08] LABS: BASOPHILS % (AUTO) 0.6 % (0.0-5.0); EOSINOPHILS % (AUTO) 2.9 % (0.0-8.0); HEMATOCRIT 38.1 % (36-48); LYMPHOCYTES % (AUTO) 13.3 % (21.0-51.0); MEAN CORPUSCULAR HEMOGLOBIN 25.1 pg (27.0-33.0); MEAN CORPUSCULAR VOLUME 80.9 fL (79-99); MONOCYTES % (AUTO) 5.9 % (3.0-13.0); NEUTROPHILS % (AUTO) 76.9 % (40.0-77.0); PLATELET COUNT (AUTO) 319 K/uL (130-400); RED BLOOD CELL COUNT(AUTO) 4.71 MIL/uL (4.00-5.50); RED CELL DISTRIBUTION WIDTH 18.8 % (11.0-15.5); WHITE BLOOD COUNT (AUTO) 11.6 K/uL (4.8-10.8)
[2022-12-18 11:11] LABS: ALBUMIN 3.1 g/dL (3.5-5.0)
[2022-12-18 11:35] LABS: APPEARANCE,URINE CLEAR (CLEAR); BILIRUBIN,URINE NEGATIVE (NEGATIVE); COLOR,URINE LIGHT-YELLOW (YELLOW); GLUCOSE, URINE (UA) NEGATIVE (NEGATIVE); KETONES,URINE NEGATIVE (NEGATIVE); LEUKOCYTE ESTERASE ,URINE NEGATIVE Leu/uL (NEGATIVE); NITRATE,URINE NEGATIVE (NEGATIVE); OCCULT BLOOD,URINE NEGATIVE (NEGATIVE); PH,URINE 6.5 (5.0-8.0); PROTEIN,URINE 50 mg/dL (NEGATIVE); UROBILINOGEN,URINE 0.2 mg/dL (0.2-1.0)
[2022-12-18 12:52] LABS: MUCUS,URINE RARE LPF (None Seen); RBC,URINE 0-1 /HPF (0-1); SQUAMOUS EPITHELIAL CELL,UR RARE /HPF (0-2); WBC,URINE 0-1 /HPF (0-1)
== END 2022-12-18 13:05 | disposition home or self-care (01) ==
LOC: EDH 10:15
DX: R03.0 Elevated blood-pressure reading, without diagnosis of hypertension (principal); I11.0 Hypertensive heart disease with heart failure; I50.9 Heart failure, unspecified; E11.9 Type 2 diabetes mellitus without complications; E78.00 Pure hypercholesterolemia, unspecified; J44.9 Chronic obstructive pulmonary disease, unspecified; Z88.8 Allergy status to other drugs, medicaments and biological substances; Z79.4 Long term (current) use of insulin; Z79.899 Other long term (current) drug therapy
CPT/HCPCS: 36415; 80053; 81001; 83605; 84484; 85025; 93005

== ENCOUNTER → 2025-03-23 | Outpatient (CLI) | payer MEDICARE ==
[~2025-03-23] MED LIST changes: +ALBU2.5V2 IH; +AMIO200T73 PO; +APIX5TAB PO; -ASPI-891 PO; -ATOR20TA65 PO; +ATOR40TA69 PO; +BUDE10.7 IH; +CARV6.25 PO; -CARV6.2579 PO; -CLOP-31 PO; +CYCL-309 PO; +ERYT1OIN7 OP; +FLUT15.845 NS; +INSLAN SQ; -INSU10VI3 SQ; +LORA10TA7 PO; +METO50TA9 PO; +ROSU10TA72 PO; -TRAM50TA4 PO
--- NOTE | 2025-03-23 17:21 | HMCIMG ---
EXAM: CT Cervical Spine With Intravenous Contrast. CLINICAL HISTORY: 64-year-old female with other nondisplaced fracture of the first cervical vertebra. TECHNIQUE: Axial computed tomography images of the cervical spine with intravenous contrast. Sagittal and coronal reformations performed. Dose reduction technique was used including one or more of the following: automated exposure control, adjustment of mA and kV according to patient size, and/or iterative reconstruction. CONTRAST: With; A right-side carotid stent is seen. COMPARISON: CT Cervical spine 01/23/2025 FINDINGS: BONES: There is an subacute oblique fracture of the left side C2 vertebral body, image number 34 of 87 in the axial series and image number 31 to 50 in the sagittal series. There is involvement of the articular surfaces involving the C1 vertebral body on the left side. There is a subacute tiny oblique fracture of the spinous process of C1. Recommend clinical correlation. Fractures demonstrate some minimal callus formation compared to the prior CT Cervical spine 01/23/2025. Follow up with neurosurgical consult as clinically indicated. There is a superior endplate vertebral body fracture of the T1 vertebral body, which appears to be subacute to chronic in nature as was seen on prior CT Cervical spine 01/23/2025. DISCS / DEGENERATIVE CHANGES: No significant disc or facet degeneration. No significant central canal or neural foraminal stenosis. SOFT TISSUES: No prevertebral soft tissue swelling. VASCULATURE: Atherosclerotic calcifications of the intracranial portions of the carotid arteries. Moderate calcification of the left side carotid bulb is noted, follow up with carotid ultrasound. IMPRESSION: 1. Subacute oblique fracture of the left side C2 vertebral body and involvement of the articular surfaces involving the C1 vertebral body on the left side, with minimal callus formation compared to prior CT Cervical spine 01/23/2025. Follow up with neurosurgical consult as clinically indicated. 2. Subacute tiny oblique fracture of the spinous process of C1. Recommend clinical correlation. 3. Superior endplate vertebral body fracture of the T1 vertebral body, subacute to chronic in nature, as seen on prior CT Cervical spine 01/23/2025. 4. Atherosclerotic calcifications of the internal carotid arteries in the intracranial portions. Moderate calcification of the left side carotid bulb. Right-side carotid stent is seen. Follow up with carotid ultrasound. /[place]
== END | disposition home or self-care (01) ==
LOC: RAH 12:19
PROVIDERS: ATTEND Neurological Surgery
DX: S12.091D Other nondisplaced fracture of first cervical vertebra, subsequent encounter for fracture with routine healing (principal); S12.190D Other displaced fracture of second cervical vertebra, subsequent encounter for fracture with routine healing; S22.018D Other fracture of first thoracic vertebra, subsequent encounter for fracture with routine healing; I65.22 Occlusion and stenosis of left carotid artery; M25.78 Osteophyte, vertebrae; X58.XXXD Exposure to other specified factors, subsequent encounter
CPT/HCPCS: 72125